=== PATIENT | male | born 1960 | race Caucasian/White ===

== ENCOUNTER 2023-09-25 11:35 | Day surgery (SDC) | payer OTHER, SELFPAY ==
--- NOTE | 2023-09-25 12:10 | PM.HP.1 ---
History of Present Illness History of Present Illness Date Patient Seen: 09/25/23 Chief complaint: Dx Colonoscopy Narrative: History of polyps [facility] Medical History (Updated 09/25/23 @ 12:06 by Lisbeth Dacosta RN) Hx of essential hypertension History of sleep apnea Meds Home Medications and Allergies Home Medications Medication Instructions Recorded Confirmed Type amlodipine 5 mg tablet 5 mg PO DAILY 09/25/23 09/25/23 History lisinopril 20 mg tablet 40 mg PO DAILY 09/25/23 09/25/23 History omeprazole 20 mg capsule,delayed 20 mg PO BID 09/25/23 09/25/23 History release Allergies Allergy/AdvReac Type Severity Reaction Status Date / Time acetaminophen [From Vicodin] AdvReac Nausea Verified 09/25/23 12:04 hydrocodone [From Vicodin] AdvReac Nausea Verified 09/25/23 12:04 Exam Narrative Exam Narrative: Oropharynx free of lesions Chest clear to auscultation percussion Cardiac exam reveals no S3 or murmur Assessment & Plan Assessment & Plan narrative: History of polyps need for follow-up colonoscopy. Risks, benefits, alternatives have been explained.
--- NOTE | 2023-09-25 12:11 | PM.OP.COLON ---
Operative Date/Time/Diagnoses Date of procedure: 09/25/23 Pre-op diagnosis: See indication and findings Procedure & Clinicians Study performed: Colonoscopy Indications: History of polyps Surgeon: Chalino Valencia Procedure Notes Procedure in detail: After informed consent was obtained the patient was placed in left lateral decubitus position. The video colonoscope was introduced the rectum slowly advanced cecum. Preparation was good. On slow withdrawal mucosa was carefully examined. The scope was removed. The patient tolerated procedure well. Blood loss none Complications none Sedation mac Findings 1. Normal colonoscopy to cecum Mr. Weaver can wait 10 years before his next colonoscopy
[2023-09-25] MEDS: LACTATED RINGERS 1,000 ML 100 ML IV (12:20)
[2023-09-25 12:40] VITALS: BP 129/81; PULSE 68; RESP 17; TEMP 36.8; O2SAT 96
[2023-09-25 12:45] VITALS: BP 98/70; PULSE 81; RESP 12; TEMP 36.7; O2SAT 95
[2023-09-25 12:51] VITALS: BP 108/83; PULSE 78; RESP 14; TEMP 36.7; O2SAT 96
[2023-09-25 12:58] VITALS: BP 110/79; PULSE 76; RESP 14; TEMP 36.7; O2SAT 97
== END 2023-09-25 13:00 | disposition home or self-care (01) ==
PROVIDERS: Referring Provider Internal Medicine Gastroenterology; Visit Provider Internal Medicine Gastroenterology
PROC: 0DJD8ZZ Inspection of Lower Intestinal Tract, Via Natural or Artificial Opening Endoscopic (ICD-10-PCS; CPT 45378; principal; 2023-09-25 12:30)
DX: Z12.11 Encounter for screening for malignant neoplasm of colon (principal); Z86.010 Personal history of colon polyps
CPT/HCPCS: 45378; J2704